=== PATIENT | female | born 1980 | race Caucasian/White ===

== ENCOUNTER 2018-08-15 14:14 | Emergency (ER) | payer OTHER, MEDICAID, SELFPAY ==
[2018-08-15 14:17] VITALS: BP 139/89; PULSE 111; RESP 16; TEMP 37.6; O2SAT 100; BMI 24.3
[2018-08-15 16:10] LABS: Bacteria Urine Occasional (0-1); Culture Indicated Urine Cult Not Indicated; RBC Urine 0-1/HPF (0-5/HPF); Squamous Epithelial Cell Urine 0-1 /HPF (0-5/HPF); WBC Urine 0-1/HPF (0-5/HPF)
--- NOTE | 2018-08-15 17:11 | PC.NURSE ---
right lower abdominal pain, with lumbar pain, also reports, vaginal odor, denies vaginal dc. denies fever and vomiting, denies trauma.
[2018-08-15 17:28] LABS: Add Manual Diff / Slide Review NO; Basophils Absolute Auto 100 /uL (0-100); Basophils Percent Auto 0.7 % (0-2); Eosinophils Absolute Auto 100 /uL (0-450); Eosinophils Percent Auto 1.3 % (2-4); Hematocrit 39.4 % (36-46); Hemoglobin 13.4 g/dL (12.0-16.0); Lymphocytes Absolute Auto 2900 /uL (1100-4500); Lymphocytes Percent Auto 28.4 % (25-40); Mean Corpuscular HGB Conc 34.1 % (30-36); Mean Corpuscular Hemoglobin 30.6 PG (26-34); Mean Corpuscular Volume 89.8 fL (80-100); Monocytes Absolute Auto 600 /uL (0-900); Monocytes Percent Auto 6.1 % (3-14); Neutrophils Absolute Auto 6400 /uL (1500-7000); Neutrophils Percent Auto 63.5 % (50-75); Platelet Count 354 X10^3/uL (150-400); Red Blood Cell Count 4.39 X10^6/uL (4.0-5.2); Red Cell Distribution Width 12.2 % (11.6-14.8); White Blood Cell Count 10.1 X10^3/uL (4.5-11.0)
[2018-08-15 17:34] LABS: INR 0.9 (0.9-1.3); Prothrombin Time 10.6 SECONDS (10.1-12.7)
[2018-08-15 17:37] LABS: PTT Partial Thromboplastin Tim 27 SECONDS (26.4-36.2)
[2018-08-15 17:39] LABS: Alanine Aminotransferase 20 IU/L (9-52); Albumin 4.6 g/dL (3.5-5.0); Albumin Globulin Ratio 1.4 (1.0-2.8); Alkaline Phosphatase 46 U/L (38-126); Aspartate Aminotransferase 23 IU/L (14-36); BUN Creatinine Ratio 18.6 (6-22); Bilirubin Total 0.6 mg/dL (0.2-1.3); Blood Urea Nitrogen 13 mg/dL (7-17); Calcium 9.4 mg/dL (8.4-10.2); Carbon Dioxide 25 mmol/L (22-32); Chloride 103 mmol/L (98-107); Estimated Glomerular Filt Rate > 60.0 mL/min (>60); Globulin 3.2 g/dL (1.7-4.1); Glucose 107 mg/dL (70-100); HEMOLYSIS < 15 (0-50); Lipase 209 U/L (23-300); Potassium 3.5 mmol/L (3.4-5.1); Sodium 139 mmol/L (137-145); Total Protein 7.8 g/dL (6.3-8.2)
--- NOTE | 2018-08-15 17:53 | ED.ABDPAIN ---
HPI - Abdominal Pain <ILIA Steen - Last Filed: 08/15/18 21:52> General Chief Complaint: Abdominal Pain Stated Complaint: ABD PAIN Time Seen by Provider: 08/15/18 17:29 Source: patient Mode of arrival: ambulatory History of Present Illness HPI narrative: 38-year-old healthy female, presents emergency department today complaining of abdominal pain for the past 2 weeks associated with a fullness after she eats as well as diarrhea. She states the pain is a 3/10 dull aching diffuse in nature but increased in the RLQ and LUQ, pain is worse with bending and palpation. Denies nausea, vomiting, constipation, vaginal discharge, dysuria, hematuria, or history of abdominal disorders. Related Data Home Medications Medication Instructions Recorded Confirmed Collagen 1 dose PO DAILY 08/15/18 08/15/18 Fish Oil 1 cap PO DAILY 08/15/18 08/15/18 etonogestrel-ethinyl estradiol 1 ea VAGINAL DIRECTED 08/15/18 08/15/18 [NuvaRing] multivitamin 1 tab PO DAILY 08/15/18 08/15/18 Allergies Allergy/AdvReac Type Severity Reaction Status Date / Time No Known Drug Allergies Allergy Verified 08/15/18 14:22 Review of Systems <ILIA Steen - Last Filed: 08/15/18 21:52> Constitutional Denies chills, Denies fever(s), Denies lethargy and Denies weakness Eyes Denies change in vision ENT Ears, Nose, Mouth, and Throat: Denies change in voice, Denies neck pain and Denies sore throat Cardiovascular Denies chest pain, Denies irregular heart rhythm, Denies lightheadedness, Denies dyspnea, Denies dyspnea on exertion and Denies orthopnea Respiratory Denies cough, Denies dyspnea, Denies dyspnea on exertion and Denies wheezing Gastrointestinal Gastrointestinal: Reports abdominal pain (RLQ), Denies change in bowel habits, Reports diarrhea (Occasional soft-loose stools. ), Denies nausea and Denies vomiting Genitourinary Denies abnormal vaginal bleeding, Denies metrorrhagia, Denies hematuria, Denies urinary frequency, Denies dyspareunia, Denies dysuria, Denies flank pain, Denies urinary incontinence, Denies urinary urgency and Denies vaginal discharge Musculoskeletal Denies neck pain Integumentary/Breasts Denies pruritus, Denies erythema, Denies rash and Denies wounds Neurologic Denies confusion and Denies weakness Psychiatric Denies anxiety, Denies confusion, Denies depression, Denies homicidal ideation and Denies suicidal ideation Hematologic/Lymphatic Denies easy bruising Allergic/Immunologic Denies wheezing PFSH <ILIA Steen - Last Filed: 08/15/18 21:52> Medical History No significant medical problems (Chronic) Social History Smoking Status: Former smoker Social History Smoking Status: Former smoker Exam <ILIA Steen - Last Filed: 08/15/18 21:52> Initial Vital Signs Initial Vital Signs: Vital Signs Temperature 99.6 F 08/15/18 14:17 Pulse Rate 111 H 08/15/18 14:17 Respiratory Rate 16 08/15/18 14:17 Blood Pressure 139/89 08/15/18 14:17 Pulse Oximetry 100 08/15/18 14:17 Const General: cooperative and well developed Nutritional Appearance: well nourished Orientation: alert, awake, oriented x3 and not confused [facility] Head: normocephalic and atraumatic Ears: external ears normal Nose: external nose normal Face and sinus: sinuses nontender, face symmetric, no sinus tenderness and No dry mucous membranes Mouth: oral mucosae normal and moist mucous membranes Eyes General: appearance normal, both eyes and all related structures Eyelids: eyelids normal Conjunctivae: conjunctivae normal Sclera: sclerae normal Pupils: PERRL EOM: EOM intact bilaterally Neck Neck: normal visual inspection, trachea midline, No lymphadenopathy, No midline deformity and No JVD Lymphatic: No lymphedema Chest Chest: normal inspection of the chest Resp Effort & Inspection: normal respiratory effort, able to speak in complete sentences, no respiratory distress and no use of accessory muscles Auscultation: clear to auscultation bilaterally, no rales, no rhonchi and no wheezes Cardio Rate: regular rate Rhythm: regular rhythm Heart Sounds: no click, no gallops, no murmurs and no rubs Pulses: normal peripheral pulses GI Inspection: non-distended Palpation: soft, no hepatosplenomegaly, No guarding, No hernia, No mass, No pulsatile mass and tender (Slight RLQ and LUQ tenderness with deep palp) Auscultation: normal bowel sounds Other: Abdominal exam overall was not alarming, localizing specific origin of pain was very difficult. Overall pain seemed overall diffuse in general. Back/Spine/Pelvis Back: No CVA tenderness Cervical Spine: cervical ROM normal and No pain with cervical ROM Thoracic/Lumbar Spine: thoracic and lumbar spine normal to inspection Skin General: no rashes or lesions noted, No jaundice and No petechiae Neuro General: alert, oriented x3, gait normal and no focal motor deficits Speech: speech normal Extrem General: full ROM, no clubbing, cyanosis or edema and no pedal edema Psych Appearance: well kempt Mental Status: mental status grossly normal Speech and Movement: speech and movement normal Attitude: cooperative Thought Content: normal and suicidality <Moses Hinkle DO - Last Filed: 08/15/18 22:17> Initial Vital Signs Initial Vital Signs: Vital Signs Temperature 99.6 F 08/15/18 14:17 Pulse Rate 111 H 08/15/18 14:17 Respiratory Rate 16 08/15/18 14:17 Blood Pressure 139/89 08/15/18 14:17 Pulse Oximetry 100 08/15/18 14:17 Course <ILIA Steen - Last Filed: 08/15/18 21:52> Orders Ordered: ED Orders 08/15/18 15:54 Urine Microscopic Stat 08/15/18 17:15 Complete Blood Count AUTO DIFF Stat Comprehensive Metabolic Panel Stat Lipase Stat Partial Thromboplastin Time Stat Prothrombin Time INR Stat Discontinued Medications Al Hydrox/Mg Hydrox/Simethicone 20 ml/ Lidocaine HCl 15 ml 0 ml PO NOW ONE Stop: 08/15/18 18:13 Last Admin: 08/15/18 18:56 Dose: 35 ml Diphtheria/Tetanus/Acell Pertussis (Adacel) 0.5 ml IM .ONCE ONE Stop: 08/15/18 18:33 Last Admin: 08/15/18 19:02 Dose: Not Given Reevaluation(s) Reevaluation #1: The patient feels slightly better after GI cocktail to see her, and discussed about following up with primary care provider as all lab results were negative and exam was benign. Patient agreed to follow up with primary care provider on . Time: 19:00 Consultations Consultation #1: Discussed plan of care with Dr. Hinkle. Time: 19:00 Vital Signs - 8 hr 08/15/18 14:17 08/15/18 18:02 08/15/18 19:54 Temperature 99.6 F Pulse Rate 111 H 63 89 Respiratory Rate 16 18 14 Blood Pressure 139/89 128/99 H Blood Pressure [Right Arm] 139/91 H Pulse Oximetry 100 100 99 <Moses Hinkle DO - Last Filed: 08/15/18 22:17> Orders Ordered: ED Orders 08/15/18 15:54 Urine Microscopic Stat 08/15/18 17:15 Complete Blood Count AUTO DIFF Stat Comprehensive Metabolic Panel Stat Lipase Stat Partial Thromboplastin Time Stat Prothrombin Time INR Stat Discontinued Medications Al Hydrox/Mg Hydrox/Simethicone 20 ml/ Lidocaine HCl 15 ml 0 ml PO NOW ONE Stop: 08/15/18 18:13 Last Admin: 08/15/18 18:56 Dose: 35 ml Diphtheria/Tetanus/Acell Pertussis (Adacel) 0.5 ml IM .ONCE ONE Stop: 08/15/18 18:33 Last Admin: 08/15/18 19:02 Dose: Not Given Vital Signs - 8 hr 08/15/18 14:17 08/15/18 18:02 08/15/18 19:54 Temperature 99.6 F Pulse Rate 111 H 63 89 Respiratory Rate 16 18 14 Blood Pressure 139/89 128/99 H Blood Pressure [Right Arm] 139/91 H Pulse Oximetry 100 100 99 MDM - Abdominal Pain <ILIA Steen - Last Filed: 08/15/18 21:52> Differential Diagnosis Differential diagnosis: Likely abdominal pain, constipation, diverticulitis and gastroenteritis Medical Records Attestation: I reviewed the patient's medical records. Lab Data Attestation: I reviewed the patient's lab results. Result diagrams: 08/15/18 17:15 08/15/18 17:15 Lab Results 08/15/18 08/15/18 08/15/18 Range/Units 15:54 17:15 17:15 WBC 10.1 (4.5-11.0) X10^3/uL RBC 4.39 (4.0-5.2) X10^6/uL Hgb 13.4 (12.0-16.0) g/dL Hct 39.4 (36-46) % MCV 89.8 (80-100) fL MCH 30.6 (26-34) PG MCHC 34.1 (30-36) % RDW 12.2 (11.6-14.8) % Plt Count 354 (150-400) X10^3/uL Neut % (Auto) 63.5 (50-75) % Lymph % (Auto) 28.4 (25-40) % Maury % (Auto) 6.1 (3-14) % Eos % (Auto) 1.3 L (2-4) % Baso % (Auto) 0.7 (0-2) % Neut # (Auto) 6400 (5852-1453) /uL Lymph # (Auto) 2900 (2934-9882) /uL Maury # (Auto) 600 (0-900) /uL Eos # (Auto) 100 (0-450) /uL Baso # (Auto) 100 (0-100) /uL PT 10.6 (10.1-12.7) SECONDS INR 0.9 (0.9-1.3) APTT 27 (26.4-36.2) SECONDS Sodium (137-145) mmol/L Potassium (3.4-5.1) mmol/L Chloride (98-107) mmol/L Carbon Dioxide (22-32) mmol/L BUN (7-17) mg/dL Creatinine (0.52-1.04) mg/dL Estimated GFR (>60) mL/min BUN/Creatinine Ratio (6-22) Glucose (70-100) mg/dL Calcium (8.4-10.2) mg/dL Total Bilirubin (0.2-1.3) mg/dL AST (14-36) IU/L ALT (9-52) IU/L Alkaline Phosphatase (38-126) U/L Total Protein (6.3-8.2) g/dL Albumin (3.5-5.0) g/dL Globulin (1.7-4.1) g/dL Albumin/Globulin Ratio (1.0-2.8) Lipase (23-300) U/L Urine RBC 0-1/hpf (0-5/HPF) Urine WBC 0-1/hpf (0-5/HPF) Ur Squamous Epith Cells 0-1 /hpf (0-5/HPF) Urine Bacteria Occasional (0-1) (None) Ur Culture Indicated? Cult not indicated 08/15/18 Range/Units 17:15 WBC (4.5-11.0) X10^3/uL RBC (4.0-5.2) X10^6/uL Hgb (12.0-16.0) g/dL Hct (36-46) % MCV (80-100) fL MCH (26-34) PG MCHC (30-36) % RDW (11.6-14.8) % Plt Count (150-400) X10^3/uL Neut % (Auto) (50-75) % Lymph % (Auto) (25-40) % Maury % (Auto) (3-14) % Eos % (Auto) (2-4) % Baso % (Auto) (0-2) % Neut # (Auto) (3277-3394) /uL Lymph # (Auto) (6222-6918) /uL Maury # (Auto) (0-900) /uL Eos # (Auto) (0-450) /uL Baso # (Auto) (0-100) /uL PT (10.1-12.7) SECONDS INR (0.9-1.3) APTT (26.4-36.2) SECONDS Sodium 139 (137-145) mmol/L Potassium 3.5 (3.4-5.1) mmol/L Chloride 103 (98-107) mmol/L Carbon Dioxide 25 (22-32) mmol/L BUN 13 (7-17) mg/dL Creatinine 0.70 (0.52-1.04) mg/dL Estimated GFR > 60.0 (>60) mL/min BUN/Creatinine Ratio 18.6 (6-22) Glucose 107 H (70-100) mg/dL Calcium 9.4 (8.4-10.2) mg/dL Total Bilirubin 0.6 (0.2-1.3) mg/dL AST 23 (14-36) IU/L ALT 20 (9-52) IU/L Alkaline Phosphatase 46 (38-126) U/L Total Protein 7.8 (6.3-8.2) g/dL Albumin 4.6 (3.5-5.0) g/dL Globulin 3.2 (1.7-4.1) g/dL Albumin/Globulin Ratio 1.4 (1.0-2.8) Lipase 209 (23-300) U/L Urine RBC (0-5/HPF) Urine WBC (0-5/HPF) Ur Squamous Epith Cells (0-5/HPF) Urine Bacteria (None) Ur Culture Indicated? Point of care testing: Point of Care Testing Test Results Negative Urine Dip Bedside Urine Glucose Negative Bedside Urine Bilirubin - Negative Bedside Urine Ketone - Negative Urine Specific [place] 1.020 Bedside Urine Occult Blood +/- Bedside Urine pH 6.0 Bedside Urine Protein - Negative Bedside Urine Urobilinogen - Negative Bedside Urine Nitrite - Negative Bedside Urine Leukocytes - Negative Esterase MDM Narrative Medical decision making narrative: It is unclear the origin of patient's abdominal pain. Patient's labs including urine tests were negative so less likely acute appendicitis, pancreatitis, cholecystitis, renal calculi, or UTI. Abdominal exam was benign with slight tenderness with deep palpation in right lower quadrant and left upper quadrant so the risks of CT scan were not appropriate. No tenderness to right upper quadrant so ultrasound was not appropriate. Review of systems was negative for urinary and vaginal complaints, no risk factors for STDs, so pelvic exam was not indicated. Strict return precautions given. Patient instructed to follow up with primary care provider on as scheduled, patient agreed with plan. <Moses Hinkle, - Last Filed: 08/15/18 22:17> Lab Data Lab Results 08/15/18 08/15/18 08/15/18 Range/Units 15:54 17:15 17:15 WBC 10.1 (4.5-11.0) X10^3/uL RBC 4.39 (4.0-5.2) X10^6/uL Hgb 13.4 (12.0-16.0) g/dL Hct 39.4 (36-46) % MCV 89.8 (80-100) fL MCH 30.6 (26-34) PG MCHC 34.1 (30-36) % RDW 12.2 (11.6-14.8) % Plt Count 354 (150-400) X10^3/uL Neut % (Auto) 63.5 (50-75) % Lymph % (Auto) 28.4 (25-40) % Maury % (Auto) 6.1 (3-14) % Eos % (Auto) 1.3 L (2-4) % Baso % (Auto) 0.7 (0-2) % Neut # (Auto) 6400 (6400-8547) /uL Lymph # (Auto) 2900 (7828-0919) /uL Maury # (Auto) 600 (0-900) /uL Eos # (Auto) 100 (0-450) /uL Baso # (Auto) 100 (0-100) /uL PT 10.6 (10.1-12.7) SECONDS INR 0.9 (0.9-1.3) APTT 27 (26.4-36.2) SECONDS Sodium (137-145) mmol/L Potassium (3.4-5.1) mmol/L Chloride (98-107) mmol/L Carbon Dioxide (22-32) mmol/L BUN (7-17) mg/dL Creatinine (0.52-1.04) mg/dL Estimated GFR (>60) mL/min BUN/Creatinine Ratio (6-22) Glucose (70-100) mg/dL Calcium (8.4-10.2) mg/dL Total Bilirubin (0.2-1.3) mg/dL AST (14-36) IU/L ALT (9-52) IU/L Alkaline Phosphatase (38-126) U/L Total Protein (6.3-8.2) g/dL Albumin (3.5-5.0) g/dL Globulin (1.7-4.1) g/dL Albumin/Globulin Ratio (1.0-2.8) Lipase (23-300) U/L Urine RBC 0-1/hpf (0-5/HPF) Urine WBC 0-1/hpf (0-5/HPF) Ur Squamous Epith Cells 0-1 /hpf (0-5/HPF) Urine Bacteria Occasional (0-1) (None) Ur Culture Indicated? Cult not indicated 08/15/18 Range/Units 17:15 WBC (4.5-11.0) X10^3/uL RBC (4.0-5.2) X10^6/uL Hgb (12.0-16.0) g/dL Hct (36-46) % MCV (80-100) fL MCH (26-34) PG MCHC (30-36) % RDW (11.6-14.8) % Plt Count (150-400) X10^3/uL Neut % (Auto) (50-75) % Lymph % (Auto) (25-40) % Maury % (Auto) (3-14) % Eos % (Auto) (2-4) % Baso % (Auto) (0-2) % Neut # (Auto) (8629-0578) /uL Lymph # (Auto) (0889-2931) /uL Maury # (Auto) (0-900) /uL Eos # (Auto) (0-450) /uL Baso # (Auto) (0-100) /uL PT (10.1-12.7) SECONDS INR (0.9-1.3) APTT (26.4-36.2) SECONDS Sodium 139 (137-145) mmol/L Potassium 3.5 (3.4-5.1) mmol/L Chloride 103 (98-107) mmol/L Carbon Dioxide 25 (22-32) mmol/L BUN 13 (7-17) mg/dL Creatinine 0.70 (0.52-1.04) mg/dL Estimated GFR > 60.0 (>60) mL/min BUN/Creatinine Ratio 18.6 (6-22) Glucose 107 H (70-100) mg/dL Calcium 9.4 (8.4-10.2) mg/dL Total Bilirubin 0.6 (0.2-1.3) mg/dL AST 23 (14-36) IU/L ALT 20 (9-52) IU/L Alkaline Phosphatase 46 (38-126) U/L Total Protein 7.8 (6.3-8.2) g/dL Albumin 4.6 (3.5-5.0) g/dL Globulin 3.2 (1.7-4.1) g/dL Albumin/Globulin Ratio 1.4 (1.0-2.8) Lipase 209 (23-300) U/L Urine RBC (0-5/HPF) Urine WBC (0-5/HPF) Ur Squamous Epith Cells (0-5/HPF) Urine Bacteria (None) Ur Culture Indicated? Point of care testing: Point of Care Testing Test Results Negative Urine Dip Bedside Urine Glucose Negative Bedside Urine Bilirubin - Negative Bedside Urine Ketone - Negative Urine Specific [place] 1.020 Bedside Urine Occult Blood +/- Bedside Urine pH 6.0 Bedside Urine Protein - Negative Bedside Urine Urobilinogen - Negative Bedside Urine Nitrite - Negative Bedside Urine Leukocytes - Negative Esterase Discharge Plan Departure Patient Disposition: Home Clinical Impression: Abdominal pain Qualifiers: Abdominal location: right lower quadrant Qualified Code(s): R10.31 - Right lower quadrant pain Discharge Date/Time: 08/15/18 19:55 Interventions: ED Discharge Assessment Last Done: 08/15/18 19:54 Instructions: DI for Abdominal Pain-Adult Activity Restrictions/Additional Instructions: Thank you for entrusting me with your care. As discussed, your labs an urine test negative for concerning etiology. Please follow up with her primary care provider on as scheduled. If you develops worsening symptoms such as bloody stool, uncontrollable vomiting, fevers, chest pain, shortness of breath, please return to emergency department. Prescriptions: No Action multivitamin Tablet 1 tab PO DAILY RF: 0 NuvaRing 0.12-0.015 mg/24 hr Ring 1 ea Vaginal DIRECTED RF: 0 Collagen 1 dose PO DAILY RF: 0 Fish Oil 1 cap PO DAILY RF: 0 <Moses Hinkle DO - Last Filed: 08/15/18 22:17> [facility] ED Attending Shy Attestation: I was available for consultation during this patient's emergency department encounter
--- NOTE | 2018-08-15 17:57 | ED_ITS ---
HPI - Abdominal Pain <ILIA Steen - Last Filed: 08/15/18 21:52> General Chief Complaint: Abdominal Pain Stated Complaint: ABD PAIN Time Seen by Provider: 08/15/18 17:29 Source: patient Mode of arrival: ambulatory History of Present Illness HPI narrative: 38-year-old healthy female, presents emergency department today complaining of abdominal pain for the past 2 weeks associated with a fullness after she eats as well as diarrhea. She states the pain is a 3/10 dull aching diffuse in nature but increased in the RLQ and LUQ, pain is worse with bending and palpation. Denies nausea, vomiting, constipation, vaginal discharge, dysuria, hematuria, or history of abdominal disorders. Related Data Home Medications Medication Instructions Recorded Confirmed Collagen 1 dose PO DAILY 08/15/18 08/15/18 Fish Oil 1 cap PO DAILY 08/15/18 08/15/18 etonogestrel-ethinyl estradiol 1 ea VAGINAL DIRECTED 08/15/18 08/15/18 [NuvaRing] multivitamin 1 tab PO DAILY 08/15/18 08/15/18 Allergies Allergy/AdvReac Type Severity Reaction Status Date / Time No Known Drug Allergies Allergy Verified 08/15/18 14:22 Review of Systems <ILIA Steen - Last Filed: 08/15/18 21:52> Constitutional Denies chills, Denies fever(s), Denies lethargy and Denies weakness Eyes Denies change in vision ENT Ears, Nose, Mouth, and Throat: Denies change in voice, Denies neck pain and Denies sore throat Cardiovascular Denies chest pain, Denies irregular heart rhythm, Denies lightheadedness, Denies dyspnea, Denies dyspnea on exertion and Denies orthopnea Respiratory Denies cough, Denies dyspnea, Denies dyspnea on exertion and Denies wheezing Gastrointestinal Gastrointestinal: Reports abdominal pain (RLQ), Denies change in bowel habits, Reports diarrhea (Occasional soft-loose stools. ), Denies nausea and Denies vomiting Genitourinary Denies abnormal vaginal bleeding, Denies metrorrhagia, Denies hematuria, Denies urinary frequency, Denies dyspareunia, Denies dysuria, Denies flank pain, Denies urinary incontinence, Denies urinary urgency and Denies vaginal discharge Musculoskeletal Denies neck pain Integumentary/Breasts Denies pruritus, Denies erythema, Denies rash and Denies wounds Neurologic Denies confusion and Denies weakness Psychiatric Denies anxiety, Denies confusion, Denies depression, Denies homicidal ideation and Denies suicidal ideation Hematologic/Lymphatic Denies easy bruising Allergic/Immunologic Denies wheezing PFSH <ILIA Steen - Last Filed: 08/15/18 21:52> Medical History No significant medical problems (Chronic) Social History Smoking Status: Former smoker Social History Smoking Status: Former smoker Exam <ILIA Seten - Last Filed: 08/15/18 21:52> Initial Vital Signs Initial Vital Signs: Vital Signs Temperature 99.6 F 08/15/18 14:17 Pulse Rate 111 H 08/15/18 14:17 Respiratory Rate 16 08/15/18 14:17 Blood Pressure 139/89 08/15/18 14:17 Pulse Oximetry 100 08/15/18 14:17 Const General: cooperative and well developed Nutritional Appearance: well nourished Orientation: alert, awake, oriented x3 and not confused [facility] Head: normocephalic and atraumatic Ears: external ears normal Nose: external nose normal Face and sinus: sinuses nontender, face symmetric, no sinus tenderness and No dry mucous membranes Mouth: oral mucosae normal and moist mucous membranes Eyes General: appearance normal, both eyes and all related structures Eyelids: eyelids normal Conjunctivae: conjunctivae normal Sclera: sclerae normal Pupils: PERRL EOM: EOM intact bilaterally Neck Neck: normal visual inspection, trachea midline, No lymphadenopathy, No midline deformity and No JVD Lymphatic: No lymphedema Chest Chest: normal inspection of the chest Resp Effort & Inspection: normal respiratory effort, able to speak in complete sentences, no respiratory distress and no use of accessory muscles Auscultation: clear to auscultation bilaterally, no rales, no rhonchi and no wheezes Cardio Rate: regular rate Rhythm: regular rhythm Heart Sounds: no click, no gallops, no murmurs and no rubs Pulses: normal peripheral pulses GI Inspection: non-distended Palpation: soft, no hepatosplenomegaly, No guarding, No hernia, No mass, No pulsatile mass and tender (Slight RLQ and LUQ tenderness with deep palp) Auscultation: normal bowel sounds Other: Abdominal exam overall was not alarming, localizing specific origin of pain was very difficult. Overall pain seemed overall diffuse in general. Back/Spine/Pelvis Back: No CVA tenderness Cervical Spine: cervical ROM normal and No pain with cervical ROM Thoracic/Lumbar Spine: thoracic and lumbar spine normal to inspection Skin General: no rashes or lesions noted, No jaundice and No petechiae Neuro General: alert, oriented x3, gait normal and no focal motor deficits Speech: speech normal Extrem General: full ROM, no clubbing, cyanosis or edema and no pedal edema Psych Appearance: well kempt Mental Status: mental status grossly normal Speech and Movement: speech and movement normal Attitude: cooperative Thought Content: normal and suicidality <Moses Hinkle DO - Last Filed: 08/15/18 22:17> Initial Vital Signs Initial Vital Signs: Vital Signs Temperature 99.6 F 08/15/18 14:17 Pulse Rate 111 H 08/15/18 14:17 Respiratory Rate 16 08/15/18 14:17 Blood Pressure 139/89 08/15/18 14:17 Pulse Oximetry 100 08/15/18 14:17 Course <ILIA Steen - Last Filed: 08/15/18 21:52> Orders Ordered: ED Orders 08/15/18 15:54 Urine Microscopic Stat 08/15/18 17:15 Complete Blood Count AUTO DIFF Stat Comprehensive Metabolic Panel Stat Lipase Stat Partial Thromboplastin Time Stat Prothrombin Time INR Stat Discontinued Medications Al Hydrox/Mg Hydrox/Simethicone 20 ml/ Lidocaine HCl 15 ml 0 ml PO NOW ONE Stop: 08/15/18 18:13 Last Admin: 08/15/18 18:56 Dose: 35 ml Diphtheria/Tetanus/Acell Pertussis (Adacel) 0.5 ml IM .ONCE ONE Stop: 08/15/18 18:33 Last Admin: 08/15/18 19:02 Dose: Not Given Reevaluation(s) Reevaluation #1: The patient feels slightly better after GI cocktail to see her, and discussed about following up with primary care provider as all lab results were negative and exam was benign. Patient agreed to follow up with primary care provider on . Time: 19:00 Consultations Consultation #1: Discussed plan of care with Dr. Hinkle. Time: 19:00 Vital Signs - 8 hr 08/15/18 14:17 08/15/18 18:02 08/15/18 19:54 Temperature 99.6 F Pulse Rate 111 H 63 89 Respiratory Rate 16 18 14 Blood Pressure 139/89 128/99 H Blood Pressure [Right Arm] 139/91 H Pulse Oximetry 100 100 99 <Moses Hinkle DO - Last Filed: 08/15/18 22:17> Orders Ordered: ED Orders 08/15/18 15:54 Urine Microscopic Stat 08/15/18 17:15 Complete Blood Count AUTO DIFF Stat Comprehensive Metabolic Panel Stat Lipase Stat Partial Thromboplastin Time Stat Prothrombin Time INR Stat Discontinued Medications Al Hydrox/Mg Hydrox/Simethicone 20 ml/ Lidocaine HCl 15 ml 0 ml PO NOW ONE Stop: 08/15/18 18:13 Last Admin: 08/15/18 18:56 Dose: 35 ml Diphtheria/Tetanus/Acell Pertussis (Adacel) 0.5 ml IM .ONCE ONE Stop: 08/15/18 18:33 Last Admin: 08/15/18 19:02 Dose: Not Given Vital Signs - 8 hr 08/15/18 14:17 08/15/18 18:02 08/15/18 19:54 Temperature 99.6 F Pulse Rate 111 H 63 89 Respiratory Rate 16 18 14 Blood Pressure 139/89 128/99 H Blood Pressure [Right Arm] 139/91 H Pulse Oximetry 100 100 99 MDM - Abdominal Pain <ILIA Steen - Last Filed: 08/15/18 21:52> Differential Diagnosis Differential diagnosis: Likely abdominal pain, constipation, diverticulitis and gastroenteritis Medical Records Attestation: I reviewed the patient's medical records. Lab Data Attestation: I reviewed the patient's lab results. Result diagrams: 08/15/18 17:15 08/15/18 17:15 Lab Results 08/15/18 08/15/18 08/15/18 Range/Units 15:54 17:15 17:15 WBC 10.1 (4.5-11.0) X10^3/uL RBC 4.39 (4.0-5.2) X10^6/uL Hgb 13.4 (12.0-16.0) g/dL Hct 39.4 (36-46) % MCV 89.8 (80-100) fL MCH 30.6 (26-34) PG MCHC 34.1 (30-36) % RDW 12.2 (11.6-14.8) % Plt Count 354 (150-400) X10^3/uL Neut % (Auto) 63.5 (50-75) % Lymph % (Auto) 28.4 (25-40) % Upson % (Auto) 6.1 (3-14) % Eos % (Auto) 1.3 L (2-4) % Baso % (Auto) 0.7 (0-2) % Neut # (Auto) 6400 (0767-0745) /uL Lymph # (Auto) 2900 (2466-4107) /uL Upson # (Auto) 600 (0-900) /uL Eos # (Auto) 100 (0-450) /uL Baso # (Auto) 100 (0-100) /uL PT 10.6 (10.1-12.7) SECONDS INR 0.9 (0.9-1.3) APTT 27 (26.4-36.2) SECONDS Sodium (137-145) mmol/L Potassium (3.4-5.1) mmol/L Chloride (98-107) mmol/L Carbon Dioxide (22-32) mmol/L BUN (7-17) mg/dL Creatinine (0.52-1.04) mg/dL Estimated GFR (>60) mL/min BUN/Creatinine Ratio (6-22) Glucose (70-100) mg/dL Calcium (8.4-10.2) mg/dL Total Bilirubin (0.2-1.3) mg/dL AST (14-36) IU/L ALT (9-52) IU/L Alkaline Phosphatase (38-126) U/L Total Protein (6.3-8.2) g/dL Albumin (3.5-5.0) g/dL Globulin (1.7-4.1) g/dL Albumin/Globulin Ratio (1.0-2.8) Lipase (23-300) U/L Urine RBC 0-1/hpf (0-5/HPF) Urine WBC 0-1/hpf (0-5/HPF) Ur Squamous Epith Cells 0-1 /hpf (0-5/HPF) Urine Bacteria Occasional (0-1) (None) Ur Culture Indicated? Cult not indicated 08/15/18 Range/Units 17:15 WBC (4.5-11.0) X10^3/uL RBC (4.0-5.2) X10^6/uL Hgb (12.0-16.0) g/dL Hct (36-46) % MCV (80-100) fL MCH (26-34) PG MCHC (30-36) % RDW (11.6-14.8) % Plt Count (150-400) X10^3/uL Neut % (Auto) (50-75) % Lymph % (Auto) (25-40) % Upson % (Auto) (3-14) % Eos % (Auto) (2-4) % Baso % (Auto) (0-2) % Neut # (Auto) (4835-3859) /uL Lymph # (Auto) (0644-8528) /uL Upson # (Auto) (0-900) /uL Eos # (Auto) (0-450) /uL Baso # (Auto) (0-100) /uL PT (10.1-12.7) SECONDS INR (0.9-1.3) APTT (26.4-36.2) SECONDS Sodium 139 (137-145) mmol/L Potassium 3.5 (3.4-5.1) mmol/L Chloride 103 (98-107) mmol/L Carbon Dioxide 25 (22-32) mmol/L BUN 13 (7-17) mg/dL Creatinine 0.70 (0.52-1.04) mg/dL Estimated GFR > 60.0 (>60) mL/min BUN/Creatinine Ratio 18.6 (6-22) Glucose 107 H (70-100) mg/dL Calcium 9.4 (8.4-10.2) mg/dL Total Bilirubin 0.6 (0.2-1.3) mg/dL AST 23 (14-36) IU/L ALT 20 (9-52) IU/L Alkaline Phosphatase 46 (38-126) U/L Total Protein 7.8 (6.3-8.2) g/dL Albumin 4.6 (3.5-5.0) g/dL Globulin 3.2 (1.7-4.1) g/dL Albumin/Globulin Ratio 1.4 (1.0-2.8) Lipase 209 (23-300) U/L Urine RBC (0-5/HPF) Urine WBC (0-5/HPF) Ur Squamous Epith Cells (0-5/HPF) Urine Bacteria (None) Ur Culture Indicated? Point of care testing: Point of Care Testing Test Results Negative Urine Dip Bedside Urine Glucose Negative Bedside Urine Bilirubin - Negative Bedside Urine Ketone - Negative Urine Specific Seltzer 1.020 Bedside Urine Occult Blood +/- Bedside Urine pH 6.0 Bedside Urine Protein - Negative Bedside Urine Urobilinogen - Negative Bedside Urine Nitrite - Negative Bedside Urine Leukocytes - Negative Esterase MDM Narrative Medical decision making narrative: It is unclear the origin of patient's abdominal pain. Patient's labs including urine tests were negative so less likely acute appendicitis, pancreatitis, cholecystitis, renal calculi, or UTI. Abdominal exam was benign with slight tenderness with deep palpation in right lower quadrant and left upper quadrant so the risks of CT scan were not appropriate. No tenderness to right upper quadrant so ultrasound was not appro priate. Review of systems was negative for urinary and vaginal complaints, no risk factors for STDs, so pelvic exam was not indicated. Strict return precautions given. Patient instructed to follow up with primary care provider on as scheduled, patient agreed with plan. <oMses Hinkle, - Last Filed: 08/15/18 22:17> Lab Data Lab Results 08/15/18 08/15/18 08/15/18 Range/Units 15:54 17:15 17:15 WBC 10.1 (4.5-11.0) X10^3/uL RBC 4.39 (4.0-5.2) X10^6/uL Hgb 13.4 (12.0-16.0) g/dL Hct 39.4 (36-46) % MCV 89.8 (80-100) fL MCH 30.6 (26-34) PG MCHC 34.1 (30-36) % RDW 12.2 (11.6-14.8) % Plt Count 354 (150-400) X10^3/uL Neut % (Auto) 63.5 (50-75) % Lymph % (Auto) 28.4 (25-40) % Upson % (Auto) 6.1 (3-14) % Eos % (Auto) 1.3 L (2-4) % Baso % (Auto) 0.7 (0-2) % Neut # (Auto) 6400 (6830-6056) /uL Lymph # (Auto) 2900 (3420-2013) /uL Upson # (Auto) 600 (0-900) /uL Eos # (Auto) 100 (0-450) /uL Baso # (Auto) 100 (0-100) /uL PT 10.6 (10.1-12.7) SECONDS INR 0.9 (0.9-1.3) APTT 27 (26.4-36.2) SECONDS Sodium (137-145) mmol/L Potassium (3.4-5.1) mmol/L Chloride (98-107) mmol/L Carbon Dioxide (22-32) mmol/L BUN (7-17) mg/dL Creatinine (0.52-1.04) mg/dL Estimated GFR (>60) mL/min BUN/Creatinine Ratio (6-22) Glucose (70-100) mg/dL Calcium (8.4-10.2) mg/dL Total Bilirubin (0.2-1.3) mg/dL AST (14-36) IU/L ALT (9-52) IU/L Alkaline Phosphatase (38-126) U/L Total Protein (6.3-8.2) g/dL Albumin (3.5-5.0) g/dL Globulin (1.7-4.1) g/dL Albumin/Globulin Ratio (1.0-2.8) Lipase (23-300) U/L Urine RBC 0-1/hpf (0-5/HPF) Urine WBC 0-1/hpf (0-5/HPF) Ur Squamous Epith Cells 0-1 /hpf (0-5/HPF) Urine Bacteria Occasional (0-1) (None) Ur Culture Indicated? Cult not indicated 08/15/18 Range/Units 17:15 WBC (4.5-11.0) X10^3/uL RBC (4.0-5.2) X10^6/uL Hgb (12.0-16.0) g/dL Hct (36-46) % MCV (80-100) fL MCH (26-34) PG MCHC (30-36) % RDW (11.6-14.8) % Plt Count (150-400) X10^3/uL Neut % (Auto) (50-75) % Lymph % (Auto) (25-40) % Upson % (Auto) (3-14) % Eos % (Auto) (2-4) % Baso % (Auto) (0-2) % Neut # (Auto) (7725-0822) /uL Lymph # (Auto) (4391-0230) /uL Upson # (Auto) (0-900) /uL Eos # (Auto) (0-450) /uL Baso # (Auto) (0-100) /uL PT (10.1-12.7) SECONDS INR (0.9-1.3) APTT (26.4-36.2) SECONDS Sodium 139 (137-145) mmol/L Potassium 3.5 (3.4-5.1) mmol/L Chloride 103 (98-107) mmol/L Carbon Dioxide 25 (22-32) mmol/L BUN 13 (7-17) mg/dL Creatinine 0.70 (0.52-1.04) mg/dL Estimated GFR > 60.0 (>60) mL/min BUN/Creatinine Ratio 18.6 (6-22) Glucose 107 H (70-100) mg/dL Calcium 9.4 (8.4-10.2) mg/dL Total Bilirubin 0.6 (0.2-1.3) mg/dL AST 23 (14-36) IU/L ALT 20 (9-52) IU/L Alkaline Phosphatase 46 (38-126) U/L Total Protein 7.8 (6.3-8.2) g/dL Albumin 4.6 (3.5-5.0) g/dL Globulin 3.2 (1.7-4.1) g/dL Albumin/Globulin Ratio 1.4 (1.0-2.8) Lipase 209 (23-300) U/L Urine RBC (0-5/HPF) Urine WBC (0-5/HPF) Ur Squamous Epith Cells (0-5/HPF) Urine Bacteria (None) Ur Culture Indicated? Point of care testing: Point of Care Testing Test Results Negative Urine Dip Bedside Urine Glucose Negative Bedside Urine Bilirubin - Negative Bedside Urine Ketone - Negative Urine Specific Seltzer 1.020 Bedside Urine Occult Blood +/- Bedside Urine pH 6.0 Bedside Urine Protein - Negative Bedside Urine Urobilinogen - Negative Bedside Urine Nitrite - Negative Bedside Urine Leukocytes - Negative Esterase Discharge Plan Departure Patient Disposition: Home Clinical Impression: Abdominal pain Qualifiers: Abdominal location: right lower quadrant Qualified Code(s): R10.31 - Right lower quadrant pain Discharge Date/Time: 08/15/18 19:55 Interventions: ED Discharge Assessment Last Done: 08/15/18 19:54 Instructions: DI for Abdominal Pain-Adult Activity Restrictions/Additional Instructions: Thank you for entrusting me with your care. As discussed, your labs an urine test negative for concerning etiology. Please follow up with her primary care provider on as scheduled. If you develops worsening symptoms such as bloody stool, uncontrollable vomiting, fevers, chest pain, shortness of breath, please return to emergency department. Prescriptions: No Action multivitamin Tablet 1 tab PO DAILY RF: 0 NuvaRing 0.12-0.015 mg/24 hr Ring 1 ea Vaginal DIRECTED RF: 0 Collagen 1 dose PO DAILY RF: 0 Fish Oil 1 cap PO DAILY RF: 0 <Moses Hinkle DO - Last Filed: 08/15/18 22:17> Cosign ED Attending Shy Attestation: I was available for consultation during this patient's emergency department encounter
[2018-08-15 18:02] VITALS: BP 139/91; PULSE 63; RESP 18; O2SAT 100
[2018-08-15] MEDS: MAG HYDROX/ALUMINUM/SIMETH SUS 20 ML, LIDOCAINE VISCOUS 2% 15 ML PO (18:56)
[2018-08-15 19:54] VITALS: BP 128/99; PULSE 89; RESP 14; O2SAT 99
== END 2018-08-15 19:55 | disposition home or self-care (01) ==
PROVIDERS: Emergency Medicine; Emergency Provider Nurse Practitioner
DX: R10.31 Right lower quadrant pain (principal); R10.12 Left upper quadrant pain; R19.7 Diarrhea, unspecified
CPT/HCPCS: 36591; 80053; 81003; 81015; 81025; 83690; 85025; 85610; 85730; 99283

== ENCOUNTER → 2018-08-25 10:41 | Outpatient (CLI) | payer OTHER, MEDICAID, SELFPAY ==
--- NOTE | 2018-08-25 | DI.US.S_ITS ---
PROCEDURE: US PELVIC COMPLETE INDICATIONS: PELVIC PAIN TECHNIQUE: Real-time scanning was performed of the pelvic organs, with image documentation. Additional endovaginal scanning was necessary due to incomplete visualization of the adnexal and endometrial structures by transabdominal scanning. COMPARISON: None. FINDINGS: Transabdominal scanning: Limited scanning through the kidneys shows no hydronephrosis. No pathologic free abdominal or pelvic fluid. Endovaginal scanning: Uterus: Uterus is normal in size at 7.4 x 3.1 x 4.1 cm. The endometrium measures 6 mm in combined thickness. Along the lower uterine segment, there is a focal heterogeneous (yet largely hypoechoic) collection seen that measures 3.4 x 1.4 x 1.9 cm. No abnormal vascularity can be seen. Ovaries: The right ovary measures 2.3 x 1.6 x 1.7 cm. The left ovary measures 2.8 x 1.7 x 2.2 cm. The ovaries have a normal sonographic appearance. No adnexal masses are seen. IMPRESSION: Within the lower uterine segment, there is a 3.4 cm irregular heterogeneous collection seen, which is felt most likely to be related to a fibroid. Differential diagnosis includes a complex mass and less likely complex fluid. As clinically appropriate, please consider a dedicated gynecological protocol MRI (without and with contrast) for further evaluation (assuming that there is no contraindication). Dictated by: Derrick Jewell M.D. on 08/25/2018 at 10:48 Approved by: Derrick Jewell M.D. on 08/25/2018 at 10:51
== END ==
PROVIDERS: PCP Family Medicine; Visit Provider Nurse Practitioner Family
DX: R10.2 Pelvic and perineal pain (principal)
CPT/HCPCS: 76830; 76856

== ENCOUNTER → 2021-01-27 08:15 | Outpatient (CLI) | payer OTHER, MEDICAID, SELFPAY | PROVIDERS: PCP Family Medicine; Visit Provider Physician Assistant | DX: N89.8 Other specified noninflammatory disorders of vagina (principal) | CPT/HCPCS: 87798; 87801 ==

== ENCOUNTER → 2021-03-10 11:32 | Outpatient (CLI) | payer OTHER, MEDICAID, SELFPAY ==
--- NOTE | 2021-03-10 | DI.MG.S_ITS ---
BILATERAL DIGITAL SCREENING MAMMOGRAM 3D/2D WITH CAD: 03/10/2021 CLINICAL: Routine screening. Baseline exam. No prior exams were available for comparison. The tissue of both breasts is extremely dense, which lowers the sensitivity of mammography. Current study was also evaluated with a Computer Aided Detection (CAD) system. No significant masses, calcifications, or other findings are seen in either breast. IMPRESSION: NEGATIVE There is no mammographic evidence of malignancy. A 1 year screening mammogram is recommended. This exam was interpreted at Station ID: [id number]. NOTE: For mammograms, a report in lay terms will be sent to the patient. Approximately 15% of breast malignancies will not be visualized mammographically. In the management of a palpable breast mass, a negative mammogram must not discourage biopsy of a clinically suspicious lesion. Electronically Signed By: Yolanda cox/charu:03/10/2021 12:30:54 letter sent: Normal Exam ACR BI-RADS Category 1: Negative [id number]
== END ==
PROVIDERS: PCP Physician Assistant; Referring Provider Physician Assistant; Visit Provider Physician Assistant
DX: Z12.31 Encounter for screening mammogram for malignant neoplasm of breast (principal)
CPT/HCPCS: 77063; 77067

== ENCOUNTER → 2021-08-05 14:46 | Outpatient (CLI) | payer OTHER, MEDICAID, SELFPAY ==
[2021-08-06 19:08] LABS: Pregnancy Test Urine Positive (Negative)
== END ==
PROVIDERS: PCP Physician Assistant; Visit Provider Physician Assistant
DX: N91.2 Amenorrhea, unspecified (principal)
CPT/HCPCS: 81025

== ENCOUNTER → 2021-09-09 17:32 | Outpatient (CLI) | payer OTHER, MEDICAID, SELFPAY ==
[2021-09-09 18:01] LABS: Add Manual Diff / Slide Review NO; Basophils Absolute Auto 100 /uL (0-100); Basophils Percent Auto 0.7 % (0-2); Eosinophils Absolute Auto 200 /uL (0-450); Eosinophils Percent Auto 2.6 % (2-4); Hematocrit 34.4 % (36-46); Hemoglobin 12.3 g/dL (12.0-16.0); Lymphocytes Absolute Auto 1800 /uL (1100-4500); Lymphocytes Percent Auto 21.3 % (25-40); Mean Corpuscular HGB Conc 35.8 % (30-36); Mean Corpuscular Hemoglobin 31.3 PG (26-34); Mean Corpuscular Volume 87.3 fL (80-100); Monocytes Absolute Auto 700 /uL (0-900); Neutrophils Absolute Auto 5700 /uL (1500-7000); Neutrophils Percent Auto 67.4 % (50-75); Platelet Count 254 X10^3/uL (150-400); Red Blood Cell Count 3.94 X10^6/uL (4.0-5.2); Red Cell Distribution Width 12.5 % (11.6-14.8); White Blood Cell Count 8.4 X10^3/uL (4.5-11.0)
[2021-09-09 18:15] LABS: Appearance Urine UA CLEAR; Bilirubin Urine UA NEGATIVE (NEGATIVE); Color Urine UA YELLOW; Glucose Urine UA NEGATIVE (Negative); Ketones Urine UA NEGATIVE (NEGATIVE); Leukocyte Esterase Urine UA NEGATIVE (NEGATIVE); Nitrite Urine UA NEGATIVE (Negative); Occult Blood Urine UA 1+ (Negative); Protein Urine UA NEGATIVE (Negative); Specific Gravity Urine UA 1.015 (1.000-1.035); Urobilinogen Urine UA 0.2 E.U./dL (0.2)
[2021-09-09 18:33] LABS: RBC Urine 0-1/HPF (0-5/HPF); Squamous Epithelial Cell Urine 1-5 /HPF (0-5/HPF); WBC Urine 1-5/HPF (0-5/HPF)
[2021-09-09 18:34] LABS: Bacteria Urine Few (2-10)
[2021-09-10 06:56] LABS: RPR Screen Non Reactive (Non Reactive)
[2021-09-10 12:18] LABS: Varicella IgG Antibody 1171 index (Immune >165)
[2021-09-10 20:01] LABS: Rubella Antibody IgG 11.5 IU/mL (>15)
[2021-09-10 20:04] LABS: HIV 1 & 2 Ab/Ag 4th Gen Combo NEGATIVE (NEGATIVE); Hep C Virus Ab w/Reflex Quant NEGATIVE s/c (NEGATIVE); Hepatitis B Surface Antigen NEGATIVE s/c (NEGATIVE)
== END ==
PROVIDERS: PCP Physician Assistant; Referring Provider Obstetrics & Gynecology; Visit Provider Obstetrics & Gynecology
DX: O09.521 Supervision of elderly multigravida, first trimester (principal)
CPT/HCPCS: 36415; 80055; 81003; 81015; 86787; 86803; 86850; 86900; 86901; 87086; 87389

== ENCOUNTER → 2021-10-06 15:53 | Outpatient (ROUT) | payer OTHER, MEDICAID, SELFPAY ==
[2021-10-06 17:43] LABS: Urine N gonorrhoeae NOT DETECTED
[2021-10-06 17:50] LABS: Urine Chlamydia NOT DETECTED
== END ==
PROVIDERS: PCP Physician Assistant; Visit Provider Obstetrics & Gynecology
DX: Z34.82 Encounter for supervision of other normal pregnancy, second trimester (principal); Z3A.14 14 weeks gestation of pregnancy
CPT/HCPCS: 87491; 87591

== ENCOUNTER → 2021-11-05 11:54 | Outpatient (CLI) | payer OTHER, MEDICAID, SELFPAY ==
[2021-11-07 21:05] LABS: AFP Value 50.4 ng/mL (.); Gest Age on Col Date 18.3 weeks (.); Insulin Dep Diabetes No (.); OSBR Risk 1IN 10000 (.); Results Report (.); Test Results *Screen Negative* (.)
== END ==
PROVIDERS: PCP Physician Assistant; Referring Provider Physician Assistant Medical; Visit Provider Physician Assistant Medical
DX: Z34.82 Encounter for supervision of other normal pregnancy, second trimester (principal); Z3A.18 18 weeks gestation of pregnancy
CPT/HCPCS: 36415; 82105

== ENCOUNTER → 2021-11-16 10:49 | Outpatient (CLI) | payer OTHER, MEDICAID, SELFPAY ==
--- NOTE | 2021-11-16 10:51 | DI.US.S_ITS ---
PROCEDURE: US OB >= 14 WEEKS FETUS INDICATIONS: ANATOMY OUTSIDE/PRIOR DATING DATA: Last menstrual period (LMP): 06/30/2021. LMP-based estimated date of delivery ([place]): 04/06/2022. First dating scan (date and location): 09/09/2021. Estimated date of delivery ([place]) from first dating scan: 04/02/2022. The calculations are made using the working [place] of 04/06/2022. TECHNIQUE: Real-time scanning was performed of the fetus, with image documentation and biometric measurements. Endovaginal scanning: Not performed COMPARISON: [facility], , OB <= 14 WEEKS FETUS, 09/09/2021, 18:05. [facility], , US OB <= 14 WEEKS FETUS, 10/06/2021, 12:39. FINDINGS: General: A single living intrauterine gestation is present. Presentation: Breech. Placenta: Placental position is anterior , without previa. Amniotic fluid index: 15.4 cm, normal range is 5-24 cm. Single deepest vertical pocket is 5.0 cm. heart rate: 149 beats per minute. Maternal cervical canal: 5.9 cm long. Normal lower limit is 2.5 cm. biometrics: Biparietal diameter: 4.79 cm, 20 weeks 3 days Head circumference: 17.5 cm, 20 weeks 0 days Abdominal circumference: 16.46 cm, 21 weeks 4 days Femur length: 3.6 cm, 21 weeks 3 days Clinically estimated gestational age: 19 weeks 6 days Composite gestational age from present scan: 20 weeks 6 days Estimated weight and percentile: 412 g, 99th percentile Anatomic survey: Neuro: Ventricles are non-dilated at less than 10 mm. Cisterna magna is normal at 3-11 mm. Cerebellum is normal in size and morphology. Nuchal skin fold: Normal at less than 6 mm between 14-21 weeks gestational age. Face: Nose and lips, facial profile are normal. Spine: No evidence for spina bifida. Heart: 4-chambered heart is present, with normal ventricular outflow tracts. Diaphragm: Diaphragm is intact. Stomach: Left-sided stomach is present. Kidneys: No hydronephrosis. Normal is less than 5 mm in 2nd trimester, less than 7 mm in 3rd trimester. Cord: 3-vessel cord has orthotopic insertion. Bladder: Normal in size. Extremities: All 4 extremities identified. IMPRESSION: 1. Single living intrauterine with working [place] of 04/06/2022. 2. size is greater than expected with estimated weight at the 99th percentile. Imaging follow-up can be obtained as clinically indicated. 3. Normal 2nd trimester anatomy survey. No anatomical anomalies detected at this time. We strive to produce accurate, complete, and clear reports of imaging services. To assist us in improving patient care, this report was composed using standard report templates and voice recognition software. Therefore, it may contain abnormal punctuation, insertions and/or omissions. Occasional wrong-word or sound-alike substitutions may occur. Though we review the report and make efforts to correct it, we do recommend that the report be read carefully in proper context to recognize any text inaccuracies. Dictated by: Erik Interiano M.D. on 11/16/2021 at 18:07 Approved by: Erik Interiano M.D. on 11/16/2021 at 18:17
== END ==
PROVIDERS: PCP Physician Assistant; Referring Provider Obstetrics & Gynecology; Visit Provider Obstetrics & Gynecology
DX: Z34.82 Encounter for supervision of other normal pregnancy, second trimester (principal); Z3A.20 20 weeks gestation of pregnancy
CPT/HCPCS: 76811

== ENCOUNTER → 2021-12-31 08:39 | Outpatient (CLI) | payer OTHER, MEDICAID, SELFPAY ==
[2021-12-31 11:58] LABS: Hematocrit 32.1 % (36-46); Hemoglobin 10.9 g/dL (12.0-16.0)
[2021-12-31 12:17] LABS: GTT (PREG) 1 Hour PP 50gm Dose 92 mg/dL (76-139)
== END ==
PROVIDERS: PCP Physician Assistant; Referring Provider Obstetrics & Gynecology; Visit Provider Obstetrics & Gynecology
DX: Z34.82 Encounter for supervision of other normal pregnancy, second trimester (principal); Z3A.26 26 weeks gestation of pregnancy
CPT/HCPCS: 36415; 82950; 85014; 85018; 86850

== ENCOUNTER → 2022-03-01 12:44 | Outpatient (CLI) | payer OTHER, MEDICAID, SELFPAY ==
[2022-03-01 17:11] LABS: Protein (Total) Urine Random 8 mg/dL (0-12)
== END ==
PROVIDERS: PCP Physician Assistant; Visit Provider Obstetrics & Gynecology
DX: Z34.83 Encounter for supervision of other normal pregnancy, third trimester (principal); Z91.89 Other specified personal risk factors, not elsewhere classified; R10.11 Right upper quadrant pain
CPT/HCPCS: 84156; 87086

== ENCOUNTER → 2022-03-01 12:49 | Outpatient (CLI) | payer OTHER, MEDICAID, SELFPAY ==
[2022-03-01 14:12] LABS: Add Manual Diff / Slide Review NO; Basophils Absolute Auto 0 /uL (0-100); Basophils Percent Auto 0.3 % (0-2); Eosinophils Absolute Auto 100 /uL (0-450); Eosinophils Percent Auto 0.6 % (2-4); Hemoglobin 11.7 g/dL (12.0-16.0); Lymphocytes Absolute Auto 1600 /uL (1100-4500); Lymphocytes Percent Auto 14.9 % (25-40); Mean Corpuscular HGB Conc 35.3 % (30-36); Mean Corpuscular Hemoglobin 31.5 PG (26-34); Mean Corpuscular Volume 89.2 fL (80-100); Monocytes Absolute Auto 700 /uL (0-900); Monocytes Percent Auto 7.2 % (3-14); Neutrophils Absolute Auto 8000 /uL (1500-7000); Platelet Count 159 X10^3/uL (150-400); Red Cell Distribution Width 13.3 % (11.6-14.8); White Blood Cell Count 10.4 X10^3/uL (4.5-11.0)
[2022-03-01 17:11] LABS: Alanine Aminotransferase 18 IU/L (<35); Alkaline Phosphatase 88 U/L (38-126); Amylase 90 U/L (30-110); Bilirubin Total 0.6 mg/dL (0.2-1.3)
== END ==
PROVIDERS: PCP Physician Assistant; Referring Provider Obstetrics & Gynecology; Visit Provider Obstetrics & Gynecology
DX: R10.11 Right upper quadrant pain (principal); O99.891 Other specified diseases and conditions complicating pregnancy; Z91.89 Other specified personal risk factors, not elsewhere classified
CPT/HCPCS: 36415; 82150; 82247; 84075; 84156; 84460; 85025; 87086

== ENCOUNTER → 2022-03-16 10:21 | Outpatient (CLI) | payer OTHER, MEDICAID, SELFPAY ==
[2022-03-18 11:05] LABS: Strep Grp B PCR NEG for Grp B Strep
== END ==
PROVIDERS: PCP Physician Assistant; Visit Provider Obstetrics & Gynecology
DX: Z34.83 Encounter for supervision of other normal pregnancy, third trimester (principal); Z3A.37 37 weeks gestation of pregnancy
CPT/HCPCS: 87653

== ENCOUNTER 2022-03-29 17:53 | Inpatient (IN) | payer OTHER, MEDICAID, SELFPAY ==
[2022-03-29 19:22] LABS: Add Manual Diff / Slide Review NO; Basophils Absolute Auto 100 /uL (0-100); Basophils Percent Auto 0.5 % (0-2); Eosinophils Absolute Auto 100 /uL (0-450); Eosinophils Percent Auto 0.6 % (2-4); Hematocrit 33.7 % (36-46); Hemoglobin 11.7 g/dL (12.0-16.0); Lymphocytes Absolute Auto 1800 /uL (1100-4500); Lymphocytes Percent Auto 17.4 % (25-40); Mean Corpuscular HGB Conc 34.7 % (30-36); Mean Corpuscular Hemoglobin 31.4 PG (26-34); Mean Corpuscular Volume 90.2 fL (80-100); Monocytes Absolute Auto 800 /uL (0-900); Monocytes Percent Auto 7.8 % (3-14); Neutrophils Absolute Auto 7600 /uL (1500-7000); Neutrophils Percent Auto 73.7 % (50-75); Platelet Count 157 X10^3/uL (150-400); Red Blood Cell Count 3.73 X10^6/uL (4.0-5.2); Red Cell Distribution Width 13.4 % (11.6-14.8); White Blood Cell Count 10.3 X10^3/uL (4.5-11.0)
[2022-03-29 19:34] LABS: COVID19 -Nasal RAPID Negative (Negative)
[2022-03-29] MEDS: miSOPROStoL 100 MCG TABLET 25 MCG VAG ×2 (19:45→23:48)
--- NOTE | 2022-03-30 01:03 | P.HPOB_ITS ---
OB HPI Date/Time Date of admission: 03/29/22 Date Patient Seen: 03/30/22 Time Patient Seen: 07:45 History of Present Condition Chief complaint: Induction [place] Calculator Estimated Delivery Date Method Current WG Current Estimate 04/06/22 LMP (Certain) 39w 0d Other Estimates 04/02/22 Ultrasound #1 39w 4d Estimated Gestational Age (weeks): 39 : 2 Para: 0 care: good care, initiated at week # (10), number of visits (10) and pounds weight gain (29) Dating criteria OB: LMP confirmed by 1st trimester US Ultrasounds: normal 1st trimester US and normal mid trimester US Obstetrical complications: other (AMA) Medical complications OB: none Indications Indication for induction OB: other (AMA) Preadmission Labs Last OB Lab Results: Blood Type AB Negative 03/29/22 18:50 Antibody Screen Positive 03/29/22 18:50 Hematocrit 33.7 % (36-46) L 03/29/22 18:50 Hemoglobin 11.7 g/dL (12.0-16.0) L 03/29/22 18:50 Hepatitis B Surface Antigen Negative s/c (NEGATIVE) 09/09/21 17 :41 Hepatitis C Antibody Negative s/c (NEGATIVE) 09/09/21 17:41 Rubella Antibody 11.5 IU/mL (>15) L 09/09/21 17:41 Varicella-Zoster IgG Antibody 1171 index (Immune >165) 09/09/21 17:41 Glucose 1 Hour 92 mg/dL (76-139) 12/31/21 09:10 Group B Streptococcus (PCR) Neg for grp b strep 03/16/22 10:21 -: Chlamydia screen: negative, Gonorrhea screen: negative and Urine: negative -: PAP smear: Normal (02/15) Genetic Screens: Cell-free DNA: Normal (normal female) and Alpha-fetoprotein: Normal External Labs -: Urine: negative Prior (ies) Past Pregnancies Del. Date GA/Weeks Labor Lgth Wt Sex Route Outcome Anesthesia Place Delv Breastfeed Preg Comp Name 08/12/10 8 elective D&C Evaluation Evaluation Baseline heart rate: 120 Variability: Moderate (11-25) monitor accelerations: Present Monitor Decelerations: Absent Contraction Frequency (minutes): 5 Uterine Contraction Intensity: Mild Status: Category l Dilation (cm): 3 Effacement (%): 75 Dilation: 3-4 cm Effacement: 60-70% station: -1 Position of cervix: mid Consistency: medium Garza score: 8 PFSH Medical History Anxiety disorder, unspecified (~2019) Breast cancer screening Chicken pox Fibroids (~2018) 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 Brother No problems noted. Grandfather Cancer Grandmother Dementia Grandmother Dementia Mother Hypertension Social History marital status: unmarried,single number of children: 0 household members: none lives independently: Yes housing: house pets and animals: Yes (2 outdoor cats, 2 dogs; aware of toxo) education level: college (evelyn's degree) occupational status: employed current occupational exposures/hazards: Yes (Works as [employer], aware of toxo) special shayla needs: No travel history: over 6 months ago seatbelt use: always helmet use: Yes water heater temp set < 120 deg: Yes working smoke detector in home: Yes fire extinguisher in home: Yes carbon monox detector in home: Yes firearms in home: No do you feel safe at home: Yes Smoking Status: Former smoker second hand exposure: No alcohol intake: former substance use type: marijuana (Not while ) during the past year weight has: remained stable well-balanced diet: daily or most days daily servings fruits/ve-4 caffeine: Yes (Not since ) Type(s) of exercise: walking and regular exercise Meds Home Medications and Allergies Home Medications Medication Instructions Recorded Confirmed Type Collagen 1 dose PO DAILY 08/15/18 03/29/22 History Fish Oil 1 cap PO DAILY 08/15/18 03/29/22 History ferrous sulfate 134 mg (27 mg 134 mg PO DAILY 08/27/21 03/29/22 History iron) tablet prenat.vits,raul,eyt-puod-qcsey 1 tab PO DAILY 08/27/21 03/29/22 History Allergies Allergy/AdvReac Type Severity Reaction Status Date / Time No Known Drug Allergies Allergy Verified 03/26/22 11:43 OB Exam Narrative Exam Narrative: Generally: Patient is sitting on the ball, no acute distress Lungs: Clear to auscultation bilaterally Cardiovascular: Regular rate and rhythm Fundal height: 39 cm Estimated weight: 7 lb Extremities: No edema Objective Labs Result Diagrams: 03/29/22 18:50 Labs: Laboratory Results - last 24 hr 03/29/22 03/29/22 03/29/22 18:50 18:50 19:19 WBC 10.3 RBC 3.73 L Hgb 11.7 L Hct 33.7 L MCV 90.2 MCH 31.4 MCHC 34.7 RDW 13.4 Plt Count 157 Neut % (Auto) 73.7 Lymph % (Auto) 17.4 L [place] % (Auto) 7.8 Eos % (Auto) 0.6 L Baso % (Auto) 0.5 Neut # (Auto) 7600 H Lymph # (Auto) 1800 [place] # (Auto) 800 Eos # (Auto) 100 Baso # (Auto) 100 SARS-CoV-2 (PCR) Negative Blood Type AB Negative Antibody Screen Positive Antibody Identification Anti-D Assessment and Plan Assessment and Plan Assessment and Plan narrative: Assessment: 41-year-old 2 para 0 at 39 weeks gestation status post cervical ripening last night Favorable cervix GBS negative Plan: Pitocin per protocol 1 Artificial rupture of membranes when able Epidural as necessary Expected management to spontaneous vaginal delivery Time Spent with Patient Total time spent with greater than 50% in coordination of care (as documented) at patient's floor/unit and/or counseling patient:: 15-24 minutes
[2022-03-30] MEDS: miSOPROStoL 100 MCG TABLET 25 MCG VAG (04:04)
[2022-03-30] MEDS: OXYTOCIN PREMIX 30 UNIT/500 ML PLAST..BAG IV (08:53)
[2022-03-30] MEDS: LACTATED RINGERS 1,000 ML 100 ML IV ×3 (08:53→21:30)
--- NOTE | 2022-03-30 14:35 | PM.OBPNLAB ---
Date/Time Date Patient Seen: 03/30/22 Time Patient Seen: 11:45 Pain Control Pain control: tolerating well Pelvic Exam Dilation (cm): 3 Effacement (%): 80 station: -1 Amniotic membrane status: Intact Contractions Contractions on admission: none Monitor mode: External Pitocin rate (mU/min): 1 Contraction frequency (min): 5 Contraction duration (min): 1 Contraction intensity: Moderate Status status: Category l Heart Rate Baseline: 140 Monitor Accelerations: Present Monitor Decelerations: Absent Monitor Variability: Moderate Assessment and Plan Assessment: induction ongoing Comments: AROM with copious clear amniotic fluid Epidural prn Expectant management to
--- NOTE | 2022-03-30 17:44 | PM.OBPNLAB ---
Date/Time Date Patient Seen: 03/30/22 Time Patient Seen: 17:44 Pain Control Pain control: tolerating well Pelvic Exam Effacement (%): 80 station: -1 Amniotic membrane status: Intact Contractions Monitor mode: External Pitocin rate (mU/min): 6 Contraction frequency (min): 3 Contraction duration (min): 1 Contraction intensity: Moderate Status status: Category l Heart Rate Baseline: 140 Monitor Accelerations: Present Monitor Decelerations: Absent Monitor Variability: Moderate Assessment and Plan Assessment: induction ongoing Comments: Defer vaginal exam for now Epidural prn
[2022-03-30] MEDS: ONDANSETRON 4 MG/2 ML INJ IV (20:06)
[2022-03-30] MEDS: FENT 2MCG/ML BUPIV 0.125% EPI 200 MCG/100 ML PLAST..BAG 7.5 MCG EPIDURAL (20:45)
[2022-03-30] MEDS: fentaNYL 100 MCG/2 ML INJ (20:45)
[2022-03-31] MEDS: LIDOCAINE 1% 20 ML (04:00)
--- NOTE | 2022-03-31 04:34 | P.PCNOB_ITS ---
Events: Labor Induction Labor & Delivery Delivery date: 03/31/22 Intrapartal Events: Prolonged 2nd Stage > 2.5 hours and Deceleration (down to 80's right at delivery) Cervical ripening method: per misoprostal protocol Induction method: per pitocin protocol Delivery augmentation: rupture of membranes Delivery monitor: external FHT and external uterine Route of delivery: vacuum extraction (at +3 station due to decel down to 70's to 80's) Indication for instrumentation: nonreassuring FHR tracing Episiotomy description: None L&D Laceration Description: Perineal - 2nd Degree and Labial (right) Delivery repair: vicryl and chromic Quantitative Blood Loss: 550 Anesthesia Type: Epidural Complications: None Narrative: Call to the center for patient ready to deliver. Upon inspection, the baby had some blisters on its scalp. Patient was making good progress with pushing. Hesitant to place a vacuum due to maceration of the scalp from the burst blisters. Patient complete and pushed for 4 hours and 24 minutes. At 0345, a live female delivered with vacuum assistance over an intact perineum. Vacuum was placed due to deceleration down to the 70s and 80s. Baby was at +3 station. When the shoulders were delivered there was a large wad of cord that delivered at the same time. The was initially placed on mom's abdomen. Due to decreased tone and decreased respiratory effort, the cord was double clamped and cut, and the infant was handed off to waiting RNs. Pitocin was given in the IV fluids. Cord bloods were obtained. The placenta delivered intact with a three-vessel cord at 0358. There was a second-degree perineal laceration which was repaired with 2-0 Vicryl. Two 0 chromic was used on the skin. A right labial laceration was repaired with 2-0 chromic after 6 cc of 1% lidocaine were injected. Hemostasis was achieved. The bladder was emptied of 150 cc of clear yellow urine. Apgars 1 at 1 minute 5 at 5 minutes and 8 at 10 minutes. Mom and infant are stable to recovery. . Epidural analgesia. Mom and infant stable to recovery. [place] Baby 1: gender: Female Presentation: vertex Position: Left Occiput Anterior Placenta delivery description: Spontaneous Cord Vessel Description: 3 Vessels, Clamped/Cut and Other (Wad of cord came out when shoulders delivered) score (1 min): 1 score (5 min): 5 score (10 min): 8 weight: 8 lb 2.8 oz Plan for aftercare: Routine care
[2022-03-31] MEDS: DERMOPLAST SPRAY 20% 60 ML 1 SPRAY TOP (07:43)
[2022-03-31] MEDS: IBUPROFEN 600 MG TABLET PO ×2 (07:43→14:58)
[2022-03-31] MEDS: ACETAMINOPHEN 325 MG TABLET 650 MG PO ×2 (07:44→14:58)
--- NOTE | 2022-03-31 17:39 | PM.OBPN.1 ---
Subjective - OB Subjective Patient comments: no complaints and pain well controlled [place] baby status: other (Issues with ) [place] feeding status: exclusively breast feeding Date Patient Seen: 03/31/22 Time Patient Seen: 17:40 Interval history: PPD#0-1 s/p VAVD Doing well issues Exam Narrative Exam Narrative: Generally: Patient is sitting up in bed, holding infant, no acute distress Fundus: Firm at U -1 Extremities: No edema, negative Homans Objective Labs Result Diagrams: 03/29/22 18:50 Assessment & Plan Plan day: 1 plan OB: routine care Comments: Breast pump Anticipate discharge April 01, 2022 if going well Time Spent With Patient Time: Total time spent is greater than 50% in coordination of care (as documented) at patient's floor/unit and/or counseling patient: Time with patient: 15-24 minutes
[2022-04-01] MEDS: IBUPROFEN 600 MG TABLET PO ×3 (01:00→14:53)
[2022-04-01] MEDS: ACETAMINOPHEN 325 MG TABLET 650 MG PO ×3 (01:00→14:52)
[2022-04-01 06:31] LABS: Hematocrit 27.9 % (36-46); Hemoglobin 9.5 g/dL (12.0-16.0)
[2022-04-01] MEDS: PRENATAL VIT,CALC/IRON/FOLIC 1 TABLET 1 TAB PO (08:54)
[2022-04-01] MEDS: DOCUSATE 100 MG CAPSULE PO (08:54)
[2022-04-01] MEDS: RHO(D) IMMUNE GLOBULIN 1,500 UNIT SYRINGE 1500 UNIT IM (14:06)
[2022-04-01] MEDS: MEASLES,MUMPS,RUBELLA VACC/PF 0.5 ML VIAL SUBCUT (14:07)
--- NOTE | 2022-06-01 06:07 | P.DS_ITS ---
Discharge Providers Provider Date of admission: 03/29/22 17:53 Discharge Date: 04/01/22 Primary care physician: Vicky Lopez PA-C Consults: Anesthesia for epidural Discharge provider: Yolanda Mcnair MD Summary Hospital Course Date Patient Seen: 04/01/22 Time Patient Seen: 09:30 Diagnoses: 39 weeks gestation Advanced maternal age Cervical ripening Induction of labor with Pitocin Epidural analgesia Vacuum assisted vaginal delivery Second-degree perineal and right labial laceration and repair Hospital Course: Patient is a 41-year-old 2 para 1 who presented on March 29, 2022 for cervical ripening prior to induction of labor. She received 1 dose of Cervidil. On the morning of 03/30/22 her cervix was favorable. Pitocin was started. At 11:45 a.m. artificial rupture membranes was performed with copious clear amniotic fluid. The patient received an epidural for pain management. She progressed to complete dilation and after 4 hours of pushing, a vacuum assisted vaginal delivery was performed. She had a second-degree perineal and right labial laceration which were repaired. Her course was unremarkable. She was discharged home on April 01, 2022. was going well. Her pain was well managed. She was ambula ting independently. She was able to void spontaneously. Peripartum Data Infant Delivery Method: Assisted Delivery (Vacuum) Laceration Description: Perineal - 2nd Degree and Labial (Right) Episiotomy description: None Procedures: Cervidil cervical ripening Pitocin induction of labor Artificial rupture of membranes Epidural analgesia Vacuum assisted vaginal delivery Second-degree perineal and right labial laceration repair complications: none [place] 1: Gender: Female Disposition of : home Status at Discharge Cognitive/behavioral status at discharge: oriented Functional status at discharge: independent ambulation Overall status at discharge: patient is progressing back to baseline Time Spent with Patient Time attestation: Total time spent providing and/or coordinating discharge services: Time spent: Less than 30 minutes Objective Labs 04/01/22 05:43 Exam Narrative Exam Narrative: Generally: Patient is sitting up in bed, holding infant, no acute distress Fundus: Firm at U -1 Extremities: Trace edema, negative Homans Discharge Plan Discharge Plan Patient Disposition: Home Provider Discharge Comment: Call with fever, chills, or bleeding vaginally more than a pad in an hour Ibuprofen 600 mg every 6 hours as needed for cramping Tylenol 650 mg every 6 hours as needed Stool softeners as needed Discharge orders & Medications Prescriptions: Continued prenat.vits,raul,[id number] Tablet 1 tab PO DAILY ferrous sulfate 134 mg (27 mg iron) tablet 134 mg PO DAILY Collagen 1 dose PO DAILY Fish Oil 1 cap PO DAILY Follow up/Referrals: Yolanda Mcnair MD [Physician] - (6 week appt w/ Dr. Mcnair: @ 1:15pm check in) Diet/Activity/Treatments Diet: Regular Activity: Nothing in the vagina for 6 weeks Skin/Wound/Dressing Care Report to your healthcare provider any signs of infection, such as:: chills, fever, increased pain, unusual drainage and unusual redness Visit Report/Discharge Packet Instructions: DI for Labor and Delivery, Vaginal Stand Alone Forms: Discharge: Care, Patient Portal/API, Stroke Signs & Symptoms Discharge Data Primary Care Provider: Vicky Lopez
== END 2022-04-01 15:00 | disposition home or self-care (01) | DRG 560 ==
PROVIDERS: Admitting Provider Obstetrics & Gynecology; PCP Physician Assistant; Referring Provider Obstetrics & Gynecology; Visit Provider Obstetrics & Gynecology
DX: O63.1 Prolonged second stage (of labor) (principal); O76 Abnormality in fetal heart rate and rhythm complicating labor and delivery; Z3A.39 39 weeks gestation of pregnancy; Z37.0 Single live birth; Z67.31 Type AB blood, Rh negative; O36.0130 Maternal care for anti-D [Rh] antibodies, third trimester, not applicable or unspecified; O70.1 Second degree perineal laceration during delivery; Z20.822 Contact with and (suspected) exposure to COVID-19
CPT/HCPCS: 36415; 59050; 59409; 85014; 85018; 85025; 86850; 86870; 86900; 86901; 87635; C9803; G0379; J2405; J2590; J2790; J3010

== ENCOUNTER → 2022-11-17 12:58 | Outpatient (CLI) | payer OTHER, MEDICAID, SELFPAY ==
[2022-11-17 20:05] LABS: Add Manual Diff / Slide Review NO; Basophils Absolute Auto 100 /uL (0-100); Eosinophils Absolute Auto 100 /uL (0-450); Eosinophils Percent Auto 1.3 % (2-4); Hematocrit 39.2 % (36-46); Hemoglobin 13.4 g/dL (12.0-16.0); Lymphocytes Absolute Auto 2500 /uL (1100-4500); Lymphocytes Percent Auto 28.9 % (25-40); Mean Corpuscular HGB Conc 34.1 % (30-36); Mean Corpuscular Hemoglobin 29.8 PG (26-34); Mean Corpuscular Volume 87.3 fL (80-100); Monocytes Absolute Auto 600 /uL (0-900); Monocytes Percent Auto 6.5 % (3-14); Neutrophils Absolute Auto 5300 /uL (1500-7000); Neutrophils Percent Auto 62.3 % (50-75); Platelet Count 259 X10^3/uL (150-400); Red Blood Cell Count 4.49 X10^6/uL (4.0-5.2); White Blood Cell Count 8.5 X10^3/uL (4.5-11.0)
[2022-11-17 20:16] LABS: Alanine Aminotransferase 20 IU/L (<35); Albumin 4.5 g/dL (3.5-5.0); Albumin Globulin Ratio 1.5 (1.0-2.8); Alkaline Phosphatase 62 U/L (38-126); Aspartate Aminotransferase 24 IU/L (14-36); BUN Creatinine Ratio 35.5 (6-22); Bilirubin Total 1.4 mg/dL (0.2-1.3); Blood Urea Nitrogen 22 mg/dL (7-17); Calcium 9.8 mg/dL (8.4-10.2); Carbon Dioxide 29 mmol/L (22-32); Chloride 101 mmol/L (98-107); Estimated Glomerular Filt Rate > 60 mL/min (>60); Glucose 94 mg/dL (70-100); HEMOLYSIS < 15 (0-50); Potassium 4.3 mmol/L (3.4-5.1); Sodium 138 mmol/L (137-145); Total Protein 7.5 g/dL (6.3-8.2)
[2022-11-17 20:30] LABS: Vitamin D 25 Hydroxy (D3) 48.6 ng/mL (30.0-100.0)
== END ==
PROVIDERS: PCP Family Medicine; Visit Provider Family Medicine
DX: F32.9 Major depressive disorder, single episode, unspecified (principal); F41.9 Anxiety disorder, unspecified
CPT/HCPCS: 80053; 82306; 84443; 85025

== ENCOUNTER → 2023-09-15 13:01 | Outpatient (CLI) | payer OTHER, MEDICAID, SELFPAY ==
[2023-09-15 19:56] LABS: Alanine Aminotransferase 18 IU/L (<35); Albumin 4.4 g/dL (3.5-5.0); Albumin Globulin Ratio 1.5 (1.0-2.8); Alkaline Phosphatase 50 U/L (38-126); Aspartate Aminotransferase 75 IU/L (14-36); BUN Creatinine Ratio 26.7 (6-22); Bilirubin Total 1.4 mg/dL (0.2-1.3); Blood Urea Nitrogen 20 mg/dL (7-17); Calcium 9.3 mg/dL (8.4-10.2); Carbon Dioxide 32 mmol/L (22-32); Chloride 104 mmol/L (98-107); Estimated Glomerular Filt Rate > 60 mL/min (>60); Globulin 2.9 g/dL (1.7-4.1); Glucose 97 mg/dL (70-100); HEMOLYSIS 32 (0-50); Sodium 139 mmol/L (137-145); Total Protein 7.3 g/dL (6.3-8.2)
== END ==
PROVIDERS: PCP Family Medicine; Visit Provider Family Medicine
DX: R17 Unspecified jaundice (principal)
CPT/HCPCS: 80053

== ENCOUNTER → 2023-11-01 09:19 | Outpatient (CLI) | payer OTHER, MEDICAID, SELFPAY ==
[2023-11-01 20:01] LABS: Alanine Aminotransferase 16 IU/L (<35); Albumin 4.3 g/dL (3.5-5.0); Albumin Globulin Ratio 1.4 (1.0-2.8); Alkaline Phosphatase 49 U/L (38-126); Aspartate Aminotransferase 22 IU/L (14-36); Bilirubin Total 1.3 mg/dL (0.2-1.3); Bilirubin Unconjugated 0.9 mg/dL (0.0-1.1); Cholesterol 197 mg/dL (140-199); Globulin 3.1 g/dL (1.7-4.1); HDL Cholesterol 67 mg/dL (40-60); HEMOLYSIS < 15 (0-50); LDL Cholesterol Calculated 109 mg/dL (<100); Total Protein 7.4 g/dL (6.3-8.2); Triglycerides 104 mg/dL (35-150)
[2023-11-01 20:35] LABS: Ferritin 17 ng/mL (6-137)
[2023-11-01 20:36] LABS: HEMOLYSIS < 15 (0-50); Iron 139 ug/dL (37-170)
[2023-11-01 20:47] LABS: Percent Iron Saturation 38 % (15-50); Total Iron Binding Capacity 368 ug/dL (265-497)
[2023-11-01 20:57] LABS: Transferrin 287 mg/dL (206-381)
[2023-11-01 21:07] LABS: Add Manual Diff / Slide Review NO; Basophils Absolute Auto 100 /uL (0-100); Eosinophils Absolute Auto 200 /uL (0-450); Eosinophils Percent Auto 2.1 % (2-4); Hematocrit 39.5 % (36-46); Hemoglobin 13.2 g/dL (12.0-16.0); Lymphocytes Absolute Auto 2600 /uL (1100-4500); Lymphocytes Percent Auto 34.4 % (25-40); Mean Corpuscular HGB Conc 33.5 % (30-36); Mean Corpuscular Hemoglobin 29.8 PG (26-34); Mean Corpuscular Volume 89.1 fL (80-100); Monocytes Absolute Auto 500 /uL (0-900); Monocytes Percent Auto 6.4 % (3-14); Neutrophils Absolute Auto 4200 /uL (1500-7000); Neutrophils Percent Auto 56.1 % (50-75); Platelet Count 267 X10^3/uL (150-400); Red Blood Cell Count 4.44 X10^6/uL (4.0-5.2); Red Cell Distribution Width 13.1 % (11.6-14.8); White Blood Cell Count 7.4 X10^3/uL (4.5-11.0)
[2023-11-01 21:11] LABS: Thyroid Stimulating Hormone 1.42 uIU/mL (0.47-4.68)
[2023-11-01 21:30] LABS: Vitamin B12 941 pg/mL (239-931)
[2023-11-03 00:36] LABS: HBsAg Screen Negative (Negative); Hepatitis A Antibody IgM Negative (Negative); Hepatitis B Core Antibody IgM Negative (Negative); Hepatitis C Antibody Non Reactive (Non Reactive)
== END ==
PROVIDERS: PCP Family Medicine; Visit Provider Family Medicine
DX: R17 Unspecified jaundice (principal); R74.01 Elevation of levels of liver transaminase levels; R41.89 Other symptoms and signs involving cognitive functions and awareness; F53.0 Postpartum depression; Z39.1 Encounter for care and examination of lactating mother; G47.00 Insomnia, unspecified; G62.9 Polyneuropathy, unspecified
CPT/HCPCS: 80061; 80074; 80076; 82306; 82607; 82728; 83540; 83550; 84443; 85025; 86038